=== PATIENT | male | born 1970 | race Caucasian/White ===

== ENCOUNTER 2019-07-06 10:38 | Emergency (ER) | payer BC, OTHER ==
--- NOTE | 2019-07-06 10:59 | EDM.PDOC ---
ED HPI GENERAL MEDICAL PROBLEM - General Chief Complaint: Lower Extremity Injury/Pain Stated Complaint: ankle injury Time Seen by Provider: 07/06/19 10:50 Source of Information: Reports: Patient, Old Records ([facility] chart/EMR) History Limitations: Reports: No Limitations - History of Present Illness INITIAL COMMENTS - FREE TEXT/NARRATIVE: The patient was brought to the emergency room via transport vehicle from [facility] for evaluation of a Workmen's Compensation injury, which occurred at about 09: 30 a.m. this morning. The patient was trying to loosen a bolt when he had an inward rotation/twisting of his right ankle with no history of fall, paresthesias, neurological deficits, knee pain, neck pain, back pain, or other complaints or injuries. The [facility] nurse did apply ice packs and a posterior foam ankle splint prior to the patient being brought to this facility. The patient denies any chest pain/pressure, heart flutter, dizziness, orthostasis, orthopnea, diaphoresis, paresthesias, recent decreased exercise tolerance, or any other anginal-type symptoms. No recent history of abdominal pain, heartburn , nausea, diarrhea, melena, gross hematochezia, or any food intolerance, including fatty foods, etc.. The patient also denies any recent fever, cough, wheezing, dyspnea, etc.. Onset: Today, Sudden Onset Date: 07/06/19 Onset Time: 09:30 Duration: Constant Location: Reports: Lower Extremity, Right. Denies: Head, Face, Neck, Chest, Abdomen, Back, Pelvis, Upper Extremity, Left, Upper Extremity, Right, Lower Extremity, Left, Radiates to Quality: Reports: Throbbing Severity: Mild Improves with: Reports: Rest Worsens with: Reports: Movement Context: Reports: Trauma (As above) Associated Symptoms: Denies: Confusion, Chest Pain, Cough, Diaphoresis, Fever/ Chills, Headaches, Loss of Appetite, Nausea/Vomiting, Shortness of Breath, Syncope, Weakness Treatments INSOLE DOUBLER: Reports: Cold Therapy, Other (see below) (As above) Right Ankle Pain Score (Numeric/FACES): 5 - Related Data Allergies Allergy/AdvReac Type Severity Reaction Status Date / Time No Known Allergies Allergy Verified 07/06/19 10:39 Home Meds: Home Meds Levothyroxine Sodium [Synthroid] 125 mcg PO DAILY 07/06/19 [History] Liothyronine [Cytomel] 5 mcg PO DAILY 07/06/19 [History] Past Medical History Cardiovascular History: Denies: Hypertension Endocrine/Metabolic History: Reports: Hypothyroidism Social & Family History - Tobacco Use Smoking Status *Q: Former Smoker Tobacco Use Within Last Twelve Months: Cigarettes Years of Tobacco use: 30 Packs/Tins Daily: 1 Packs/Tins Daily Comment: Patient smoked between ages 16 and 46. Used Tobacco, but Quit: Yes Smoking Cessation Information Provided To Patient: No Second Hand Smoke Exposure: No Second Hand Smoke Education Provided: No - Living Situation & Occupation Occupation: Employed ([employer]) Review of Systems - Review of Systems Review Of Systems: Comprehensive ROS is negative, except as noted in HPI. ED EXAM, GENERAL - Physical Exam Exam: See Below Exam Limited By: No Limitations General Appearance: Alert, WD/WN, No Apparent Distress Head: Atraumatic, Normocephalic Neck: Normal Inspection, Supple, Non-Tender, Full Range of Motion. No: Lymphadenopathy (L), Lymphadenopathy (R), Thyromegaly Respiratory/Chest: No Respiratory Distress, Lungs Clear, Normal Breath Sounds, No Accessory Muscle Use, Chest Non-Tender. No: Pleural Rub, Retractions Cardiovascular: Normal Peripheral Pulses, Regular Rate, Rhythm, No Edema, No Gallop, No JVD, No Murmur, No Rub. No: Gallop/S3, Gallop/S4, Friction Rub Peripheral Pulses: 2+: Radial (L), Radial (R), Dorsalis Pedis (R) GI/Abdominal: Normal Bowel Sounds, Soft, Non-Tender, No Organomegaly, No Distention, No Abnormal Bruit, No Mass, Pelvis Stable. No: Guarding (Male) Exam: Deferred Rectal (Males) Exam: Deferred Back Exam: Normal Inspection, Full Range of Motion. No: CVA Tenderness (L), CVA Tenderness (R), Muscle Spasm Extremities: No Pedal Edema, Normal Capillary Refill, Joint Swelling (Right lateral malleolus/ankle), Leg Pain (Moderate palpation pain over the right lateral malleolus with no joint instability, deformity, crepitation, Achilles tendon tear, right knee pain/injury, etc. Negative anterior drawer.), Limited Range of Motion (Secondary to ankle pain). No: Non-Tender, Grace's Sign Neurological: Alert, Oriented, CN II-XII Intact, Normal Cognition, Normal Gait, No Motor/Sensory Deficits Psychiatric: Normal Affect, Normal Mood Skin Exam: Warm, Dry, Intact, Normal Color, No Rash. No: Diaphoretic, Wound/ Incision Lymphatic: No Adenopathy ED TRAUMA EXTREMITY PROCEDURES - Splinting Right Lower Extremity Splint Site: Right ankle Pre-Procedure NV Status: Normal Post-Procedure NV Status: Normal Splint Material: Air Splint, Other (Omar wrap) Splint Design: Stirrup Applied & Form Fitted By: Nurse Provider Post-Splint Application NV Check: NV Status Normal, Good Position Complications: No Course - Vital Signs Last Recorded V/S: Last Vital Signs Temp 36.6 C 07/06/19 10:49 Pulse 84 07/06/19 10:49 Resp 18 07/06/19 10:49 BP 145/90 H 07/06/19 10:49 Pulse Ox 95 07/06/19 10:49 Vital Signs - 24 hr 07/06/19 10:49 Temperature [ 36.6 C Oral] Pulse, 84 Peripheral [ Pulse Oximetry] Respiratory 18 Rate Blood Pressure 145/90 H [Left Upper Arm ] O2 Sat by Pulse 95 Oximetry - Orders/Labs/Meds Orders: Active Orders 24 hr Category Date Time Status Ankle Min 3V Rt [CR] Stat Exams 07/06/19 10:56 Ordered Durable Medical Equipment for Discharge [DME for Ot 07/06/19 10:58 Ordered Discharge] [COMM] Routine Durable Medical Equipment for Discharge [DME for Ot 07/06/19 11:09 Ordered Discharge] [COMM] Routine Durable Medical Equipment for Discharge [DME for Ot 07/06/19 11:10 Ordered Discharge] [COMM] Routine Obtain Past Medical Record [OM.PC] Routine Oth 07/06/19 10:56 Active Labs: None Meds: None - Radiology Interpretation Free Text/Narrative:: X-rays of the right ankle, 3 views, shows evidence of mild hypercalcifications of the distal tibia and fibula consistent with vascularity, however no evidence of fracture, dislocation, etc.. Mild joint effusion noted. Ankle mortise is intact. Final x-ray report was received prior to the patient leaving the emergency room and is in agreement with the above findings. Departure - Departure Time of Disposition: 11:45 Disposition: Home, Self-Care 01 Condition: Good Clinical Impression: Ankle sprain, Hypothyroidism (acquired), Elevated blood pressure reading - Discharge Information *PRESCRIPTION DRUG MONITORING PROGRAM REVIEWED*: Not Applicable *COPY OF PRESCRIPTION DRUG MONITORING REPORT IN PATIENT LUIS FELIPE: Not Applicable Instructions: Crutch Use, Adult, [id number], Ankle Sprain, [id number] Forms: ED Department Discharge Additional Instructions: 1. Followup with your regular provider in 7 days as directed for reevaluation and possible repeat x-rays of the right ankle. Bring these discharge instructions with you to that visit. 2. Tylenol 650 mg by mouth every 4 hours and/or OTC ibuprofen 2-3 tabs by mouth every 6 hours with food as directed./needed. You may stagger these medications for 48-72 hours only, which essentially means that you are receiving a pain medication about every 2 hours. 3. Work excuse- See Form 4. Limited bearing on your right foot/ankle with use of your Omar wrap, air ankle splint, and crutches at all times with exception of bathing 5. Leg elevation and ice packs as discussed. 6. Immediately after this visit verify that your cellular telephone's voicemail has been activated and is empty. Also verify that your home telephone 's answering machine is operating properly and has space to receive messages. Note that it is sometimes necessary for us to be able to contact you at a later date to discuss your medical care. 7. Please remember that we are ALWAYS here for you and want to answer any questions you may have. Feel free to call the hospital any time and we call you back JIE. 8. Continue to observe your blood pressures and pulses closely through your regular provider. Sepsis Event Note - Evaluation Sepsis Screening Result: No Definite Risk - Focused Exam Vital Signs: Vital Signs Temp Pulse Resp BP Pulse Ox 07/06/19 10:49 36.6 C 84 18 145/90 H 95 Date Exam was Performed: 07/06/19 Time Exam was Performed: 11:34 - Problem List & Annotations (1) Ankle sprain SNOMED Code(s): 40685989 Code(s): S93.409A - SPRAIN OF UNSP LIGAMENT OF UNSPECIFIED ANKLE, INIT ENCNTR Status: Acute Priority: High Onset Date: 07/06/19 Annotation/ Comment:: Right ankle sprain as above. The nurse did apply a 4 inch Omar wrap, air ankle splint, and provide the patient with crutches, including instructions abuse, etc. [employer] work excuse and Workmen's Compensation forms were completed. Activity restrictions were discussed. Symptomatic relief as per discharge instructions. Close follow-up by regular provider as per discharge instructions. No other injuries, including knee pain, etc. as above. Possible repeat x-rays, CT scan of the ankle, etc. at follow-up depending on his clinical course. Qualifiers: Encounter type: initial encounter Involved ligament of ankle: tibiofibular ligament Laterality: right Qualified Code(s): S93.431A - Sprain of tibiofibular ligament of right ankle, initial encounter (2) Elevated blood pressure reading SNOMED Code(s): 97027121 Code(s): R03.0 - ELEVATED BLOOD-PRESSURE READING, W/O DIAGNOSIS OF HTN Status: Acute Priority: Medium Onset Date: 07/06/19 Annotation/Comment:: Elevated blood pressure today likely secondary to his ankle pain. Blood pressures are to be closely by his regular provider. No previous history of hypertension. (3) Hypothyroidism (acquired) SNOMED Code(s): 377069265 Code(s): E03.9 - HYPOTHYROIDISM, UNSPECIFIED Status: Chronic Priority: Medium Annotation/Comment:: Currently under therapy. - Problem List Review Problem List Initiated/Reviewed/Updated: Yes - My Orders Last 24 Hours: My Active Orders 07/06/19 10:56 Ankle Min 3V Rt [CR] Stat Obtain Past Medical Record [OM.PC] Routine 07/06/19 10:58 Durable Medical Equipment for Discharge [DME for Discharge] [COMM] Routine 07/06/19 11:09 Durable Medical Equipment for Discharge [DME for Discharge] [COMM] Routine 07/06/19 11:10 Durable Medical Equipment for Discharge [DME for Discharge] [COMM] Routine - Assessment/Plan Last 24 Hours: My Active Orders 07/06/19 10:56 Ankle Min 3V Rt [CR] Stat Obtain Past Medical Record [OM.PC] Routine 07/06/19 10:58 Durable Medical Equipment for Discharge [DME for Discharge] [COMM] Routine 07/06/19 11:09 Durable Medical Equipment for Discharge [DME for Discharge] [COMM] Routine 07/06/19 11:10 Durable Medical Equipment for Discharge [DME for Discharge] [COMM] Routine Assessment:: As above Plan: As above. Extensive precautions were given to the patient, who is in agreement with the treatment plan. See Patient Instructions for further treatment and plan.
== END 2019-07-06 11:30 | disposition home or self-care (01) ==
LOC: LL.ED 10:38
DX: S93.401A Sprain of unspecified ligament of right ankle, initial encounter (principal); E03.9 Hypothyroidism, unspecified; R03.0 Elevated blood-pressure reading, without diagnosis of hypertension; Z79.890 Hormone replacement therapy; Z87.891 Personal history of nicotine dependence; X50.1XXA Overexertion from prolonged static or awkward postures, initial encounter; Y93.89 Activity, other specified
CPT/HCPCS: 29515; 73610-RT; 99283-25